=== PATIENT | female | born 1955 | race African-American/Black ===

== ENCOUNTER 2018-04-06 08:00 | Emergency (ER) | payer MEDICAID ==
[~2018-04-06] VITALS: Ht 167.6 cm; Wt 70.0 kg
[2018-04-06] MEDS ORDERED: HYDROCODONE/ACETAMINOPHEN 5/325MG TABLET PO STA (10:40)
[2018-04-06] MEDS ORDERED: ONDANSETRON 4MG ODT PO ONE (14:00)
[2018-04-06 15:25] VITALS: BP 139/93
== END 2018-04-06 15:46 | disposition home or self-care (01) ==
LOC: ER 08:00
DX: M54.5 Low back pain (principal); M25.561 Pain in right knee; M79.672 Pain in left foot; E11.9 Type 2 diabetes mellitus without complications; W19.XXXA Unspecified fall, initial encounter; Y93.89 Activity, other specified; Y92.89 Other specified places as the place of occurrence of the external cause; Y99.8 Other external cause status
CPT/HCPCS: 72100; 73560; 73630; 99284; Q0162